=== PATIENT | female | born 1970 | race Caucasian/White ===

== ENCOUNTER 2025-06-15 14:38 | Outpatient (CLI) | payer BC, MEDICARE ==
[~2025-06-15 14:38] MED LIST: Iopamidol 370 76% 100 ML VIAL ONE
== END 2025-06-15 14:39 | disposition home or self-care (01) ==
LOC: CSHCT 14:38
PROVIDERS: ATTEND Physician Assistant Medical
DX: K58.1 Irritable bowel syndrome with constipation (principal); R10.30 Lower abdominal pain, unspecified; R19.8 Other specified symptoms and signs involving the digestive system and abdomen
CPT/HCPCS: 74177; Q9967